=== PATIENT | female | born 1965 | race Caucasian/White ===

== ENCOUNTER → 2020-09-19 | Outpatient (CLI) | payer MEDICARE, OTHER ==
[~2020-09-19] MED LIST: MS CONTIN15 MG PO; NEURONTIN 300300 MG PO; NORCO 10-325 T1 EACH PO; PREPARATION H1 EAC1 PR
== END ==
LOC: RAD 13:39
DX: M65.4 Radial styloid tenosynovitis [de Quervain] (principal)
CPT/HCPCS: 73110